=== PATIENT | female | born 1975 | race Two or more races ===

== ENCOUNTER → 2018-05-18 10:14 | Outpatient (CLI) | payer SELFPAY ==
--- NOTE | 2018-05-18 10:53 | US_ITS ---
STUDY: THYROID ULTRASOUND REASON FOR EXAM: Female, 42 years old. Thyroiditis. Nodule felt by doctor on the right. TECHNIQUE: Ultrasound evaluation of the thyroid was performed with real-time and static chu-scale imaging. COMPARISON: None. FINDINGS: RIGHT LOBE: The right thyroid gland measures 5.6 x 3.2 x 2.3 cm. The background echotexture is normal. Background vascularity of the gland is normal. 3.7 x 3.0 x 2.0 cm solid nodule, sharply circumscribed margins, hypoechoic halo, minimal internal heterogeneity, oval shape, intranodular and juhi-nodular vascular flow. This nodule requires biopsy. LEFT LOBE: The left lobe of the thyroid gland measures 5.5 x 1.5 x 1.1 cm. Normal vascularity of the gland. Homogeneous background echotexture. 4 x 4 x 3 mm superior pole solid hypoechoic nodule with sharply circumscribed margins and oval shape with Perinodular vascular flow. ISTHMUS: The isthmus measures 2 mm, normal echotexture . US/Thyroid IMPRESSION: Right thyroid nodule with a greatest dimension of 3.7 cm requires biopsy based on the [place] [employer] Guidelines for assessment of thyroid nodules. This nodule falls into the Intermediate Suspicion Pattern, and by size criteria greater than or equal to 1 cm in greatest dimension, ultrasound-guided FNA biopsy is recommended. The small left thyroid nodule is of no acute consequence and can be followed with long-term surveillance imaging. There is no evidence of acute thyroiditis, no generalized hyperemia of the gland, and the background echotexture of the gland is homogeneous and normal, no evidence of chronic thyroiditis. Electronically Signed: Jose Luis Santana, at 16:45 EDT Tel , Service support ,
== END ==
PROVIDERS: Family Provider Family Medicine; PCP Family Medicine; Referring Provider Family Medicine; Visit Provider Family Medicine
DX: E06.9 Thyroiditis, unspecified (principal)
CPT/HCPCS: 76536

== ENCOUNTER → 2018-05-31 08:00 | Outpatient (CLI) | payer SELFPAY ==
--- NOTE | 2018-05-31 | ASPS_PTH ---
PATIENT: BAM ECHOLS I LOC: [facility] U#:[id number] AGE/SX: 49/F ROOM: RE05/31/[address]: Dr. Jorge Luu MD : 1975 BED: DIS: SPEC #: [id number] RECD: 05/31/18 12:09 STATUS: NADYA FILOMENA #: [id number] MATY: 05/31/18 00:[address]: Jorge Luu DEPT: CYTOLOGY RECD BY: Carlos Haque ENTERED: 05/31/18 12:11 SP TYPE: ASPIRATION OTHR DR: Dr. Jorge Guerra MD Tissues: Thyroid gland, NOS Procedures: Pap Stain (control) Special Stain Group II Cytology Other HEADER OPERATION: Ultrasound-guided fine needle aspiration right thyroid PRE-OP DIAGNOSIS: Right thyroid nodule E04.1 TISSUE SUBMITTED: Fine needle aspiration right thyroid 8 slides DIAGNOSIS CYTOLOGY Right thyroid nodule, ultrasound-guided FNA (smears): Consistent with benign follicular nodule. See cytology study and comment. :rg 06/01/18 COMMENT Correlation with clinical, radiologic findings and appropriate follow up are necessary. CYTOLOGY STUDY Slides are reviewed. The specimen is adequate for evaluation. The specimen consists of benign follicular cells. Significant atypia is not seen. CYTOLOGY GROSS Received are eight smears labeled with the patient's name and designated per the requisition as right thyroid nodules. Submitted for staining. 05/31/18 TC:5 CPT: 50910
== END ==
PROVIDERS: Family Provider Family Medicine; PCP Family Medicine; Referring Provider Surgery; Visit Provider Surgery
DX: E04.1 Nontoxic single thyroid nodule (principal)
CPT/HCPCS: 88161; 88313

== ENCOUNTER 2018-06-29 05:31 | Day surgery (SDC) | payer SELFPAY ==
[2018-06-29] VITALS (8 sets, daily range): BP systolic 109–130; BP diastolic 67–87; PULSE 57–78; RESP 14–16; TEMP 36.8–37; O2SAT 98–100; BMI 23.5
--- NOTE | 2018-06-29 | IMM_PTH ---
PATIENT: BAM ECHOLS I LOC: [facility] [place] U#:[id number] AGE/SX: 42/F ROOM: RE06/29/[address]: Dr. Jorge Luu MD : 1975 BED: DIS: 06/29/2018 SPEC #: [id number] RECD: 07/03/18 13:18 STATUS: NADYA REDevin #: [id number] MATY: 06/29/18 00:[address]: Jorge Luu DEPT: IMMUNOHISTOCHEMISTRY RECD BY: Catie Griffin ENTERED: 07/03/18 13:20 SP TYPE: IMMUNO OTHR DR: Dr. Jorge Guerra MD Tissues: Thyroid gland, NOS Procedures: CD56 (add) CK19 (add) GAL-3 (add) HBME (add) CD56 (initial) PHYSICIAN & INSTITUTION [place] [id number] SPECIMEN INFORMATION: Tissue Source: Right thyroid lobe Clinical Info: Right thyroid nodule Specimen Number: [id number] #1, 5 & 6 CPT code: 73291, 98895 x11 METHODOLOGY: Deparaffinized sections of prefer/formalin-fixed tissue or PAP/DQ stained slides are incubated with monoclonal/polyclonal antibodies/oligonucleotide probes. Localization is made via biotin free immunoperoxidase method. Appropriate controls are performed and reacted as expected. Results on target cell population are indicated in the following table: RESULTS: ANTIBODY / CLONE RESULT Block 1 CD56 (123C3.D5) negative HBME1 (HBME-1) positive CK19 (A53-B/A2.26) positive GAL3 (9C4) positive Block 5 CD56 (123C3.D5) positive HBME1 (HBME-1) negative CK19 (A53-B/A2.26) negative GAL3 (9C4) negative Block 6 CD56 (123C3.D5) positive HBME1 (HBME-1) negative CK19 (A53-B/A2.26) negative GAL3 (9C4) negative These tests were developed and their performance characteristics determined by [facility]. They may not have been cleared or approved by the U.[place]. Food and Drug Administration. The FDA has determined that such clearance or approval is not necessary. 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 Dominant follicular nodule, adenomatoid nodule. Comment: Papillary thyroid microcarcinoma is noted in block1. SJ:jany 07/04/18
[2018-06-29 06:08] LABS: Internal QC Validated? YES +Cl - CLEAR BKGD; Pregnancy, Urine Negative Negative
[2018-06-29 06:29] LABS: Hematocrit 32.8 % (37-47); Hemoglobin 10.2 g/dl (12.0-15.0); Mean Corp Hgb Conc 31.1 g/gl (32-36); Mean Corpuscular Hgb 24.9 pg (27.0-32.0); Mean Corpuscular Volume 80.2 fL (81-99); Mean Platelet Vol. 10.5 fl (6.2-12.0); Platelet Count 271 K/mm3 (150-450); RBC Distribution Width CV 16.3 % (11.6-14.6); RBC Distribution Width SD 47.3 fl (35.1-43.9); Red Blood Count 4.09 M/mm3 (4.2-5.4); Scan Indicated on CBC? Y/N NO; White Blood Count 6.8 K/mm3 (4.4-11.0)
[2018-06-29 06:40] LABS: Anion Gap 8 (5-15); BUN 14 mg/dL (7-18); BUN/Creat Ratio 18.2 RATIO (10-20); Calcium,Total 8.6 mg/dL (8.5-10.1); Chloride 113 mmol/L (98-107); Creatinine, Serum 0.77 mg/dL (0.55-1.02); EST Glomerular Filtration Rate 87 mL/min (>60); Est Glom Filt Rate - Afr Amer 105 mL/min (>60); Estimated Creatinine Clearance 81.35 ml/min; Glucose 93 mg/dL (74-106); Potassium 4.6 mmol/L (3.5-5.1); Sodium Level 144 mmol/L (136-145)
--- NOTE | 2018-06-29 07:15 | THYROID_PTH ---
PATIENT: BAM ECHOLS I LOC: [facility] [place] U#:[id number] AGE/SX: 42/F ROOM: RE06/29/[address]: Dr. Jorge Luu MD : 1975 BED: DIS: 06/29/2018 SPEC #: [id number] RECD: 06/29/18 13:44 STATUS: NADYA FILOMENA #: [id number] MATY: 06/29/18 07:[address]: Jorge Luu DEPT: SURGICAL PATHOLOGY RECD BY: Jose Luis Nath ENTERED: 06/29/18 13:44 SP TYPE: THYROID OTHR DR: Dr. 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 Multinodular goiter with a dominant adenomatoid nodule (4 cm in greatest dimension). Chronic lymphocytic thyroiditis. See comment. LATASHA:jany 07/04/18 COMMENT Immunohistochemistry ([id number]) supports the above diagnosis. The findings of chronic lymphocytic thyroiditis may represent Ramos's thyroiditis. Clinical correlation and appropriate follow up are necessary. Please make reference to previous specimen ([id number]), right thyroid nodule, ultrasound-guided FNA with diagnosis of consistent with benign follicular nodule. THYROID CANCER SUMMARY: Procedure - thyroid lobectomy, right Received - in formalin Specimen integrity - intact Specimen size - 5.5 x 3 x 3 cm Specimen weight - 18 gm Tumor focality - unifocal Tumor laterality - right lobe Tumor size - 0.1 x 0.1 cm in greatest dimension (measured microscopically) Histologic type - papillary carcinoma, microcarcinoma Architecture - follicular Cytomorphology - classical Margins - margins uninvolved by carcinoma. The tumor is 0.2 cm away from the posterior margin. Tumor capsule - none Tumor capsular invasion - not applicable Lymph-Vascular invasion - not identified Perineural invasion - not identified Extrathyroidal extension - not identified Regional lymph nodes: Number examined - 6 Number involved - 0 Distant metastasis - not applicable Additional pathologic findings - multinodular goiter with a dominant adenomatoid nodule (4 cm in greatest dimension). Chronic lymphocytic thyroiditis. Ancillary studies - please see immunohistochemistry report ([id number]). PATHOLOGIC STAGE: pT1 pN0 Mx The above summary is in compliance with [employer] (CAP) Cancer Protocols Checklist and [place] Joint Committee on Cancer (AJCC), Staging Manual, 8th Ed. Case has been reviewed in consultation with Dr. Jane who concurs with the above diagnosis. IDC:AM MICROSCOPIC DESCRIPTION Slides are reviewed. GROSS DESCRIPTION Received in fixative is one container labeled with the patient's name and designated right thyroid lobe, suture urias anterior-superior aspect of lobe. The specimen consists of a thyroid lobectomy specimen weighing 18 gm and measuring 5.5 x 3 x 3 cm. No external parathyroid tissue is identified. The specimen is inked as follows: anterior surface - blue, posterior surface - black, isthmic margin - yellow. Sections reveal a garcia, solid nodule occupying the middle and lower portion of the thyroid lobe measuring 4 x 2.2 x 2 cm. The entire specimen is submitted in 12 cassettes. Cassette 1 contains the most superior portion of the specimen and cassette 12 contains the most inferior portion. Cassettes 4-11 also contain the nodule. / LATASHA:jany 07/02/18 TC:0 CPT: 88144
--- NOTE | 2018-06-29 07:28 | PCM.DC.GS ---
Discharge Diet: Light diet - advance as tolerated - if you have questions about your diet instructions, please talk to you doctor. Discharge Activity: May Not Drive - for 1 week or while taking narcotic pain medicine. May shower in (days): 1 Lifting Restrictions: 10 pounds Call your doctor if your incision/area has: Continuous Slow Oozing, Sudden Increased Bleeding, Increased Pain/ Swelling, Increased Redness, Foul Smelling Discharge Call your doctor if you observe: Fever of 101 or Higher Suture Line Care: Avoid Pulling/Pushing, Avoid Pinching/Bending Additional Dressing/Incision Instructions:: Change or remove dressing in 4 days. Leave steri-strips in place for 1 week. Allergies/Adverse Reactions: Allergies No Known Allergies Allergy (Verified 06/22/18 09:50) Medications to take at Discharge Hydrocodone Bitart/Apap 5-325 [[place] 5MG-325MG] 1 tablet PO Q4H PRN PRN 3 Days #8 tablet 06/29/18 The following prescriptions were given: Hydrocodone Bitart/Apap 5-325 [[place] 5MG-325MG] 1 tablet PO Q4H PRN PRN 3 Days #8 tablet PRN Reason: Pain Orders to be completed after discharge: 12 Lead EKG [[facility]] Time Frame: 06/29/18, Location: None Selected Primary Care Physician: Jorge Guerra MD [Primary Care Provider] - Test Results: Test results from this visit will be discussed in further detail at your follow-up appointment, if applicable. Please Follow Up With: Jorge Luu MD - [phone] When: Call to make an appointment to be seen in about 10 days.
[2018-06-29] MEDS: Bupivacaine Mpf 0.5% 30 ML VIAL (08:50)
--- NOTE | 2018-06-29 08:54 | OP.PCM_ITS ---
Problem List (1) Right thyroid nodule Status: Acute Report of Operation Date of Procedure: 06/29/18 Pre-Operative Diagnosis: Symptomatic right thyroid follicular lesion Post-Operative Diagnosis: Same Surgery/Procedure Performed:: Right thyroid lobectomy with isthmusectomy Description of Surgical Findings:: Timeout and informed consent was obtained. 42-year-old female was taken to the operating room. She was placed supine on the table. She underwent general endotracheal intubation anesthesia. Her neck was gently extended sterilely prepped draped. A transverse suprasternal incision was created sharp dissection was carried down through the subcutaneous tissue. Platysma was incised. Strap muscle was incised vertically. Strap muscles were partially incised on the right to gain access. The right lobe was identified. At this point tedious sharp and blunt dissection was instituted. Blunt dissection with a hemostat and then hemostasis obtained by using a harmonic scalpel. Inferior parathyroid identified and carefully preserved. The course of the recurrent laryngeal nerve was carefully identified and preserved. The superior pole vessels were secured with a harmonic scalpel. The gland was then rotated anteriorly and the gland could be exposed with the dominant nodule in the mid to lower portion. Dissection was performed directly upon the posterior aspect of the gland and the course of the recurrent laryngeal nerve roots kept in view. The superior parathyroid was identified and preserved. The ligament of Degroot was transected. The gland was dissected off the anterior surface of the trachea and the medial portion of the left lobe/isthmus was taken with the specimen. A suture was placed in the anterior superior aspect of the right lobe. The right neck was inspected. Structures intact. Hemostasis was intact. A small piece of fibular was placed. The strap muscles were approximated midline with interrupted 3-0 Vicryl. The platysma was approximated with interrupted 3-0 Vicryl. The skin edges approximated with subcuticular stitching of 5-0 Vicryl. The juhi- incisional wound was anesthetized with 10 cc of 0.5% Marcaine. Surgical glue was applied followed by Telfa and tape dressing. She tolerated the procedure well was taken to the recovery room in satisfactory condition. Specimen right lobe and isthmus. Drains none. Blood loss minimal. Jorge Luu M.D., F.A.C.S. Type of Anesthesia:: General Anesthesiologist: Juan Mcneill
[2018-06-29] MEDS: HYDROcodone Bitartrate/Apap 5/325 Tablet PO (10:31)
== END 2018-06-29 12:54 | disposition home or self-care (01) ==
LOC: SDC 05:31 → AC 05:32
PROVIDERS: Anesthesiology; Family Provider Family Medicine; PCP Family Medicine; Referring Provider Surgery; Visit Provider Surgery
PROC: (CPT 60220; principal; 2018-06-29 07:00)
DX: C73 Malignant neoplasm of thyroid gland (principal); E06.3 Autoimmune thyroiditis; F41.9 Anxiety disorder, unspecified; Z87.891 Personal history of nicotine dependence
CPT/HCPCS: 60220; 80048; 81025; 85027; 88307; 88341; 88342; J7120; J2405